=== PATIENT | female | born 1960 | race African-American/Black ===

== ENCOUNTER 2020-12-11 18:48 | Emergency (ER) | payer OTHER ==
[~2020-12-11] VITALS: Ht 170.2 cm; Wt 113.4 kg
[2020-12-11 18:55] VITALS: BP 173/81
[2020-12-11] MEDS ORDERED: DESYREL150 MG PO (19:01)
[2020-12-11] MEDS ORDERED: SERTRALINE HCL100 MG PO (19:01)
[2020-12-11] MEDS ORDERED: METFORMIN HCL500 M3 PO (19:01)
[2020-12-11] MEDS ORDERED: COZAAR 50 MG TA50 MG PO (19:01)
[2020-12-11] MEDS ORDERED: TRULICITY3 MG/0.5 M (19:03)
== END 2020-12-11 20:03 | disposition home or self-care (01) ==
LOC: ER 18:48
DX: S76.012A Strain of muscle, fascia and tendon of left hip, initial encounter (principal); Z79.899 Other long term (current) drug therapy; X50.1XXA Overexertion from prolonged static or awkward postures, initial encounter; Y93.89 Activity, other specified; Y92.89 Other specified places as the place of occurrence of the external cause; Y99.8 Other external cause status

== ENCOUNTER 2021-05-13 18:47 | Emergency (ER) | payer OTHER ==
[~2021-05-13] VITALS: Ht 170.2 cm; Wt 113.0 kg
[~2021-05-13 18:47] MED LIST: COZAAR 50 MG TA50 MG PO; DESYREL150 MG PO; METFORMIN HCL500 M3 PO; SERTRALINE HCL100 MG PO; TRULICITY3 MG/0.5 M
[2021-05-13] MEDS ORDERED: LIPITOR 20 MG T20 M1 PO (20:43)
[2021-05-13] MEDS ORDERED: ZANAFLEX4 MG PO (21:37)
[2021-05-13] MEDS ORDERED: MOBIC7.5 MG PO (21:37)
[2021-05-13 22:13] VITALS: BP 151/75
== END 2021-05-13 22:22 | disposition home or self-care (01) ==
LOC: ER 18:47
DX: S86.911A Strain of unspecified muscle(s) and tendon(s) at lower leg level, right leg, initial encounter (principal); M79.604 Pain in right leg; I10 Essential (primary) hypertension; E11.9 Type 2 diabetes mellitus without complications; E78.5 Hyperlipidemia, unspecified; Z79.899 Other long term (current) drug therapy; W19.XXXA Unspecified fall, initial encounter; Y93.89 Activity, other specified; Y99.8 Other external cause status; Y92.89 Other specified places as the place of occurrence of the external cause

== ENCOUNTER 2021-07-02 17:18 | Emergency (ER) | payer OTHER ==
[~2021-07-02] VITALS: Ht 170.2 cm; Wt 113.4 kg
[~2021-07-02 17:18] MED LIST changes: +LIPITOR 20 MG T20 M1 PO; +MOBIC7.5 MG PO; +ZANAFLEX4 MG PO
[2021-07-02 17:35] LABS: URINE BILIRUBIN NEGATIVE (Negative); URINE BLOOD TRACE (Negative); URINE CLARITY CLEAR; URINE COLOR YELLOW; URINE GLUCOSE-RANDOM* NEGATIVE (Negative); URINE KETONES NEGATIVE (Negative); URINE NITRITE-REFLEX NEGATIVE (Negative); URINE PROTEIN (DIPSTICK) NEGATIVE (Negative); URINE SPECIFIC GRAVITY 1.025 (1.005-1.035); URINE UROBILINOGEN 0.2 E.U./dl (0.2-1.0)
[2021-07-02 17:40] LABS: URINE LEUKOCYTES-REFLEX 1+ (Negative)
[2021-07-02 17:54] LABS: BACTERIA-REFLEX 1-9 Few /HPF (None Seen); CASTS None Seen /LPF (None Seen); CRYSTALS None Seen /LPF (None Seen); SQUAMOUS 0-3 Few /LPF (0-3); URINE RBC 1-2 Rare /HPF (NONE SEEN); URINE WBC-REFLEX 0-5 Rare /HPF (0-5)
[2021-07-02 18:00] LABS: ABSOLUTE NEUTROPHILS 2.7 thou/uL (1.4-8.2); BASOPHILS 1.3 % (0.0-2.0); EOSINOPHILS 2.1 % (0.0-3.0); HEMATOCRIT 38.1 % (37.0-47.0); HEMOGLOBIN 12.4 gm/dL (12.0-15.0); LYMPHOCYTES 41.3 % (24.0-44.0); MCH 27.7 pg (26.0-34.0); MCHC 32.5 g/dL (28.0-37.0); MCV 85.3 fL (80.0-100.0); MONOCYTES 5.9 % (1.0-8.0); PLATELET COUNT 206 thou/uL (150-400); POLYS 49.4 % (36.0-66.0); RBC 4.46 mil/uL (4.20-5.00); RDW 14.5 % (10.5-14.5); WBC 5.5 thou/uL (4.0-11.0)
[2021-07-02 18:02] LABS: ANION GAP 7 mmol/L (7-16); BUN 16 mg/dL (7-18); CHLORIDE 105 mmol/L (98-107); CO2 27 mmol/L (21-32); GLUCOSE 183 mg/dL (74-106); POTASSIUM 3.3 mmol/L (3.5-5.1); SODIUM 139 mmol/L (136-145)
[2021-07-02 18:07] LABS: ALBUMIN 3.7 g/dL (3.4-5.0); DIRECT BILIRUBIN < 0.1 mg/dL (<0.1-0.2); LIPASE 70 U/L (73-393); SGOT 20 U/L (15-37); SGPT 32 U/L (14-59); TOTAL BILIRUBIN 0.3 mg/dL (0.2-1.0); TOTAL PROTEIN 7.6 g/dL (6.4-8.2)
[2021-07-02] MEDS ORDERED: MOBIC7.5 MG PO (19:06)
[2021-07-02] MEDS ORDERED: BENTYL 10 MG CA10 M1 PO (19:06)
[2021-07-02 19:18] VITALS: BP 137/62
== END 2021-07-02 19:18 | disposition home or self-care (01) ==
LOC: ER 17:18
PROVIDERS: Emergency Medicine; Nurse Practitioner
DX: R10.31 Right lower quadrant pain (principal); I10 Essential (primary) hypertension; E78.5 Hyperlipidemia, unspecified; E11.9 Type 2 diabetes mellitus without complications; Z79.899 Other long term (current) drug therapy